=== PATIENT | female | born 1955 | race Caucasian/White ===

== ENCOUNTER 2018-06-02 20:30 | Observation (INO) | payer OTHER, MEDICARE ==
[~2018-06-02] VITALS: Ht 170.2 cm; Wt 106.6 kg
[2018-06-02 21:01] LABS: ABSOLUTE BASOPHIL COUNT 0 /CUMM (0.0-0.2); ABSOLUTE EOSINOPHIL COUNT 0.1 /CUMM (0.0-0.7); ABSOLUTE GRANULOCYTE CT 6.9 /CUMM (1.4-6.5); ABSOLUTE LYMPH COUNT 1.9 /CUMM (1.2-3.4); ABSOLUTE MONOCYTE COUNT 0.2 /CUMM (0.10-0.60); BASOPHIL % 0.3 % (0.0-2.0); EOSINOPHIL % 1.4 % (0-5); GRANULOCYTE % 75.6 % (42.2-75.2); HEMATOCRIT 44.9 % (37-47); MEAN CORPUSCULAR HGB 30.9 PG (27.0-31.0); MEAN CORPUSCULAR HGB CONC 33.8 G/DL (33.0-37.0); MEAN CORPUSCULAR VOLUME 91.3 FL (81.0-99.0); MEAN PLATELET VOLUME 8.5 FL (7.4-10.4); PLATELET COUNT 298 /CUMM (130-400); RBC DISTRIBUTION WIDTH 13.7 % (11.5-14.5); RED BLOOD CELL CT 4.91 /CUMM (4.20-5.40); WHITE BLOOD CELL COUNT 9.1 /CUMM (4.8-10.8)
--- NOTE | 2018-06-02 23:04 | CT SCAN REPORT ---
EXAMINATION: CT ABD PELVIS W IV CONTRAST CLINICAL INFORMATION: Reason for Study:
Presumptive Dx: biliary vs perf viscous vs pancreatitis
Signs Symptoms: epigastric pain
epigastric pain COMPARISON: None TECHNIQUE: Multidetector volumetric imaging was performed from the superior aspect of the liver through the pubic symphysis 95 mL Optiray 320 injected Sagittal and coronal reformatted images were obtained on the technologist's workstation. DLP: 957 mGy-cm FINDINGS: LOWER THORAX: Included lung bases are clear. There is a probably hiatal hernia. HEPATOBILIARY: No focal hepatic lesions. No biliary ductal dilatation. GALLBLADDER: There are gallstones. Gallbladder is distended. SPLEEN: Spleen is normal in size. PANCREAS: Pancreas is atrophic. Peripancreatic fat is clear. STOMACH AND GASTROINTESTINAL TRACT: Stomach is grossly unremarkable. Mildly dilated small bowel loops, partial SBO with a transition zone mid abdomen RIGHT of midline see marked image. There is also mildly dilated colon with multiple air-fluid levels, probably colonic ileus. No CT evidence of appendicitis. ADRENALS: No adrenal nodules. KIDNEYS/URETERS: No hydronephrosis, stones or solid mass lesions. URINARY BLADDER: Partially decompressed. PELVIC VISCERA: Unremarkable PERITONEUM: No free air or fluid. LYMPH NODES: No lymphadenopathy. VASCULAR:Abdominal aorta normal in size, no aneurysm found. BONES, ABDOMINAL WALL AND SOFT TISSUES: Age-appropriate changes of the spine and skeletal system, no destructive osteolytic or osteosclerotic bone lesion found IMPRESSION: 1. Mildly dilated small bowel loops proximally with a transition zone, partial small bowel obstruction noticed in the mid abdomen RIGHT of midline. Could be adhesions versus pathology. This can be further investigated with upper GI small bowel series. 2. Mild colonic ileus, multiple air-fluid levels in the colon. 3. Normal appendix. 4. Cholelithiasis. 5. Small hiatal hernia. (Referring physician will be called, to be alerted of the above findings and recommendations.)
--- NOTE | 2018-06-02 23:59 | ED GENERAL ADULT ---
History of Present Illness General Chief Complaint: Abdominal Pain/Flank Pain Stated Complaint: ABD PAIN Source: patient Exam Limitations: no limitations Vital Signs & Intake/Output Vital Signs & Intake/Output Vital Signs Date Time Temp Pulse Resp B/P B/P Pulse O2 O2 Flow FiO2 Mean Ox Delivery Rate 06/03 0456 99.2 85 20 122/66 94 Room Air 06/03 0035 100.0 84 16 160/80 100 Room Air 06/02 2236 76 18 162/74 98 Room Air 06/02 2040 96.8 102 20 137/83 100 Room Air ED Intake and Output 06/03 0000 06/02 1200 Intake Total 1000 Output Total 300 Balance 700 Intake, IV 1000 Output, 300 Emesis Patient 235 lb Weight Weight Reported by Patient Measurement Method Allergies Coded Allergies: acetaminophen (From DARVOCET-N) (NAUSEA 06/02/18) aspirin (From PERCODAN) (NAUSEA 06/02/18) erythromycin base (RASH 06/02/18) oxycodone (From PERCODAN) (NAUSEA 06/02/18) propoxyphene (From DARVOCET-N) (NAUSEA 06/02/18) Uncoded Allergies: EYE DROPS (EYE RASH 06/02/18) Triage Note: PT TO ED C/O SUDDEN ONSET 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 PMH OF GASTRIC SLEAVE 4-5 YEARS AGO. PAIN NOW GOING TO BACK. DID HAVE VODKA MARTINI EARLIER TODAY. +N/V. +FLATUS. LAST BM WAS "A COUPLE OF DAYS AGO, NOT UNUSUAL FOR ME" DENIES UTI S/S Triage Nurses Notes Reviewed? yes Onset: Abrupt Duration: minute(s): Timing: constant HPI: 62-year-old female with a history of hypertension, hyperlipidemia, depression, diabetes presenting with sudden onset of upper abdominal pain and nausea vomiting the began approximately 30 minutes prior to arrival. Patient reports pain across all her upper quadrants. Feels as though her pain radiates to the back. Pain has no worsening or alleviating factors. Her last bowel movement was 2-3 days ago and normal, states that this is normal for her and she usually only moves her bowels every 2-3 days. Still passing flatus. Prior abdominal surgeries include gastric sleeve done approximately 5 years ago in [place]. No recent sick contacts, travel, or foul foods. (Omar Geraldine GONZALEZ) Past History Travel History Traveled to [place] past 21 day No Medical History Any Pertinent Medical History? see below for history Cardiovascular: hypertension, hyperlipidemia Psychiatric: depression Endocrine: diabetes Surgical History Surgical History: non-contributory Psychosocial History What is your primary language Tajik Tobacco Use: Never used ETOH Use: occasional use Illicit Drug Use: denies illicit drug use Family History Hx Contributory? No (Geraldine Hensley) Review of Systems Review of Systems Constitutional: Reports: no symptoms. EENTM: Reports: no symptoms. Respiratory: Reports: no symptoms. Cardiovascular: Reports: no symptoms. GI: Reports: see HPI. Genitourinary: Reports: no symptoms. Musculoskeletal: Reports: no symptoms. Skin: Reports: no symptoms. Neurological/Psychological: Reports: no symptoms. Hematologic/Endocrine: Reports: no symptoms. Immunologic/Allergic: Reports: no symptoms. All Other Systems: Reviewed and Negative (Geraldine Hensley) Physical Exam Physical Exam General Appearance: well developed/nourished, alert, moderate distress Comments: Gen.: Well-nourished, well-developed, actively vomiting and uncomfortable on arrival Head: Normocephalic, atraumatic. Eyes: Normal inspection bilaterally Ears: Normal inspection bilaterally Nose: Normal inspection Neck: Normal inspection Lungs: clear to auscultation bilaterally, normnal breath sounds Heart: regular rate and rhythm Abdomen: soft, nondistended, normal bowel sounds, tender to palpation in the epigastrium with mild guarding, but no rebound Extremities: Normal inspection Neurologic: alert and oriented x3, steady gait Skin: warm and dry Psychiatric: Normal mood and affect, no apparent delusions or hallucinations, behavior appropriate Core Measures ACS in differential dx? No CVA/TIA Diagnosis: No Sepsis Present: No Sepsis Focused Exam Completed? No (Geraldine Hensley) Progress Differential Diagnoses I considered the following diagnoses in my evaluation of the patient: [ Pancreatitis versus peptic ulcer disease versus perforated viscus versus bowel obstruction versus gastritis] Plan of Care: Orders Procedure Date/time Status Nothing by Mouth 06/03 B Active CBC WITHOUT DIFFERENTIAL 06/03 0700 Active BASIC ELECTROLYTES PLUS BUN&CR 06/03 0700 Active FingerStick- Glucose 06/03 0459 Active FingerStick- Glucose 06/03 0458 Active Vital Signs 06/03 0236 Active Teach/Educate 06/03 0236 Active Pain Treatment and Response 06/03 0236 Active Nutritional Intake, Monitor 06/03 0236 Active Isolation 06/03 0236 Active Intake & Output 06/03 0236 Active Patient Care Conference 06/03 0236 Active Activity/Ambulation 06/03 0236 Active Pathway - chart 06/03 0048 Active Patient Data 06/03 0048 Active Code Status 06/03 0048 Active Saline Lock 06/[address] in observation 06/03 0015 Active Misc Message 06/03 001 Active ED Holding Orders 06/03 0015 Active Vital Signs 06/03 0015 Active Code Status 06/03 0015 Complete VTE Mechanical Prophylaxis 06/03 UNK Active Vital Signs 06/03 UNK Active Intake & Output 06/03 UNK Active Activity/Ambulation 06/03 UNK Active LACTIC ACID 06/02 2134 Complete Add-on Test (ER Only) 06/02 2119 Active TROPONIN LEVEL 06/02 2038 Complete LIPASE 06/02 2038 Complete HEPATIC FUNCTION PANEL 06/02 2038 Complete CBC WITHOUT DIFFERENTIAL 06/02 2038 Complete BASIC METABOLIC PANEL 06/02 2038 Complete AMYLASE 06/02 2038 Complete EKG 06/02 2038 Active Current Medications Sig/Leslie Start time Last Medication Dose Stop Time Status Admin Atorvastatin Calcium 20 MG 1700 06/03 1700 AC (Lipitor) Escitalopram Oxalate 20 MG DAILY 06/03 0900 AC (Lexapro) Timolol Maleate 1 GTT BID 06/03 0900 AC (Timoptic) Acetaminophen 1,000 MG Q6P PRN 06/03 0115 AC (Ofirmev) N/A 1 UNIT (No Carrier) Morphine Sulfate 2 MG Q3P PRN 06/03 0115 AC (MORPHINE SULFATE) Morphine Sulfate 4 MG Q3P PRN 06/03 0115 AC (MORPHINE SULFATE) Oxycodone/ 1 TAB Q4P PRN 06/03 0115 AC Acetaminophen (Percocet) Oxycodone/ 2 TAB Q4P PRN 06/03 0115 AC Acetaminophen (Percocet) Insulin Human Regular 0 Q6 06/03 0058 AC (NovoLIN R) Ondansetron HCl 4 MG Q8P PRN 06/03 0045 AC (Zofran) Sodium Chloride 1,000 ML .Q10H 06/03 0045 AC 06/03 (Normal Saline 0.9%) 0255 Laboratory Tests 06/03/18 0034: Lactic Acid Cancelled 06/03/18 0034: Lactic Acid 1.2 06/02/182054: Anion Gap 11, Estimated GFR > 60, BUN/Creatinine Ratio 16.3, Glucose 225 H, Calcium 10.1, Total Bilirubin 0.9, Direct Bilirubin 0.1, AST 21, ALT 28, Alkaline Phosphatase 86, Troponin I < 0.01, Total Protein 7.3, Albumin 4.3, Amylase 51, Lipase 114, CBC w Diff NO MAN DIFF REQ, RBC 4.91, MCV 91.3, MCH 30.9 , MCHC 33.8, RDW 13.7, MPV 8.5, Gran % 75.6 H, Lymphocytes % 20.6, Monocytes % 2.1, Eosinophils % 1.4, Basophils % 0.3, Absolute Granulocytes 6.9 H, Absolute Lymphocytes 1.9, Absolute Monocytes 0.2, Absolute Eosinophils 0.1, Absolute Basophils 0 Labs unremarkable with the exception of hyperglycemia in the 200s CT scan 1. Mildly dilated small bowel loops proximally with a transition zone, partial small bowel obstruction noticed in the mid abdomen RIGHT of midline. Could be adhesions versus pathology. This can be further investigated with upper GI small bowel series. 2. Mild colonic ileus, multiple air-fluid levels in the colon. 3. Normal appendix. 4. Cholelithiasis. 5. Small hiatal hernia. Patient informed of all above findings. Discussed with Dr. Penn in the surgical PA. Patient will be placed in observation. Initial ED EKG: rhythm (sinus tach to 103) (Geraldine Hensley) Departure Departure Disposition: STILL A PATIENT Condition: Stable Clinical Impression Primary Impression: Partial small bowel obstruction Referrals: Stephanie Hollis MD (PCP/Family) Departure Forms: Customer Survey General Discharge Information Observation Note Spoke With: Fili LOWE,Preston Payne Place Patient In: Non-ED OBS Care Area Rationale for Observation: My rational for observation is as follows [pain control, antiemetics, IV fluids, bowel rest, surgery consultation, serial abdominal exams, possible NG tube for persistent vomiting]. (Geraldine Hensley) PA/DIRECTOR OF ACCOUNTING Co-Sign Statement Statement: ED Attending supervision documentation- [x] I saw and evaluated the patient. I have also reviewed all the pertinent lab results and diagnostic results. I agree with the findings and the plan of care as documented in the PA's/DIRECTOR OF ACCOUNTING's documentation. [] I have reviewed the ED Record and agree with the PA's/DIRECTOR OF ACCOUNTING's documentation. [] Additions or exceptions (if any) to the PAs/DIRECTOR OF ACCOUNTING's note and plan are summarized below: [] (Adrian LOWE,Melecio Rose) Critical Care Note Critical Care Note Critical Care Time: 30-74 min (Omar GONZALEZ,Geraldine)
--- NOTE | 2018-06-03 00:27 | Cons- General Surgery ---
Rachele Watts 06/03/18 0026: General Information and HPI Consulting Request Date of Consult: 06/03/18 Requested By: Geraldine GONZALEZ Reason for Consult: abdominal pain Source of Information: patient, family Exam Limitations: no limitations History of Present Illness: 62-year-old female presented to the ER with sudden acute onset of diffuse abdominal pain and tenderness. Patient describes her pain coming on suddenly at 8:00 tonight it remained constant. Her pain was bandlike across the upper aspect of the abdomen without radiation. She had associated bloating and fullness followed by an episode of emesis. She states she had an uneventful day up to this point and her diet was within her usual. 5 years ago she had a gastric sleeve without incident and has no issues. While in the ER she had 1 loose bowel movement. She has some improvement of her pain with decrease in nausea without any vomiting here in the ER. CAT scan shows a partial small bowel obstruction and her labs are normal except for an elevated glucose. She is on an insulin pump and has been a diabetic for the past 15 years. Past History Medical History Cardiovascular: hypertension, hyperlipidemia Psychiatric: depression Endocrine: diabetes Psychosocial History ETOH Use: occasional use Illicit Drug Use: denies illicit drug use Review of Systems Review of Systems Constitutional: Denies: chills, diaphoresis, weakness. Cardiovascular: Denies: chest pain, palpitations. Respiratory: Denies: cough, short of breath. GI: Reports: abdominal pain, bloating, diarrhea, nausea, vomiting. Genitourinary: Denies: no symptoms. Musculoskeletal: Denies: no symptoms. Exam & Diagnostic Data Vital Signs and I&O Vital Signs Date Time Temp Pulse Resp B/P B/P Pulse O2 O2 Flow FiO2 Mean Ox Delivery Rate 06/02 2236 76 18 162/74 98 Room Air 06/02 2040 96.8 102 20 137/83 100 Room Air Intake & Output 06/03 0806/03 0000 06/02 1600 06/02 0806/02 0000 06/01 1600 Intake Total 1000 Output Total 300 Balance 700 Intake, IV 1000 Output, 300 Emesis Patient 235 lb Weight Weight Reported by Patient Measurement Method Physical Exam: Patient is alert and oriented in mild distress lying on the stretcher her is present during this exam. HEENT is within normal limits Neck is supple nontender with active range of motion Chest is clear to auscultation symmetric without rales rhonchi or wheeze Heart is regular rate rhythm without murmurs rubs gallops Abdomen is obese with mild distention there is mild tenderness to palpation in the epigastric and right upper quadrant area there is no Gonzales sign there is no guarding or rebound Patient reported non-bloody diarrhea and no history of GI bleeds Bilateral lower extremities without edema Perfusion with brisk cap refill Last 24 Hours of Labs: Laboratory Tests 06/02 2055 Chemistry Sodium (137 - 145 mmol/L) 139 Potassium (3.5 - 5.1 mmol/L) 4.4 Chloride (98 - 107 mmol/L) 104 Carbon Dioxide (22 - 30 mmol/L) 24 Anion Gap (5 - 16) 11 BUN (7 - 17 mg/dL) 13 Creatinine (0.5 - 1.0 mg/dL) 0.8 Estimated GFR (>60 ml/min) > 60 BUN/Creatinine Ratio (7 - 25 %) 16.3 Glucose (65 - 99 mg/dL) 225 H Calcium (8.4 - 10.2 mg/dL) 10.1 Total Bilirubin (0.2 - 1.3 mg/dL) 0.9 Direct Bilirubin (< 0.4 mg/dL) 0.1 AST (14 - 36 U/L) 21 ALT (9 - 52 U/L) 28 Alkaline Phosphatase (<127 U/L) 86 Troponin I (< 0.11 ng/ml) < 0.01 Total Protein (6.3 - 8.2 g/dL) 7.3 Albumin (3.5 - 5.0 g/dL) 4.3 Amylase (30 - 110 U/L) 51 Lipase (23 - 300 U/L) 114 Hematology CBC w Diff NO MAN DIFF REQ WBC (4.8 - 10.8 /CUMM) 9.1 RBC (4.20 - 5.40 /CUMM) 4.91 Hgb (12.0 - 16.0 G/DL) 15.2 Hct (37 - 47 %) 44.9 MCV (81.0 - 99.0 FL) 91.3 MCH (27.0 - 31.0 PG) 30.9 MCHC (33.0 - 37.0 G/DL) 33.8 RDW (11.5 - 14.5 %) 13.7 Plt Count (130 - 400 /CUMM) 298 MPV (7.4 - 10.4 FL) 8.5 Gran % (42.2 - 75.2 %) 75.6 H Lymphocytes % (20.5 - 51.1 %) 20.6 Monocytes % (1.7 - 9.3 %) 2.1 Eosinophils % (0 - 5 %) 1.4 Basophils % (0.0 - 2.0 %) 0.3 Absolute Granulocytes (1.4 - 6.5 /CUMM) 6.9 H Absolute Lymphocytes (1.2 - 3.4 /CUMM) 1.9 Absolute Monocytes (0.10 - 0.60 /CUMM) 0.2 Absolute Eosinophils (0.0 - 0.7 /CUMM) 0.1 Absolute Basophils (0.0 - 0.2 /CUMM) 0 Imaging Results: CT shows Mildly dilated small bowel loops proximally with a transition zone, partial small bowel obstruction noticed in the mid abdomen RIGHT of midline. Could be adhesions versus pathology. This can be further investigated with upper GI small bowel series. 2. Mild colonic ileus, multiple air-fluid levels in the colon. 3. Normal appendix. 4. Cholelithiasis. 5. Small hiatal hernia. Assessment/Plan Assessment/Plan 62-year-old female status post gastric sleeve 5 years ago presents to the ER with acute abdominal pain with CAT scan showing partial small bowel obstruction. She vomited once prior to arriving to the emergency room and had a large bowel movement that was loose. She is received 8 mg of morphine IV and her pain is controlled currently. Labs are normal except for her glucose which is elevated and she currently is controlled by an insulin pump. Patient also has a history of hypertension glaucoma hyperlipidemia and depression. Plan will be admit for surgical observation she will remain nothing by mouth with maintenance IV fluids and pain medication to control her abdominal pain and anti-nausea meds. Alps for DVT prophylaxis Continue her home meds Repeat labs in the morning with serial abdominal exams Medical consult for the morning to assess insulin needs Consult Acknowledgment - Thank you for your consult request. Preston Penn MD 06/03/18 1003: General Information and HPI Allergies/Medications Allergies: Coded Allergies: acetaminophen (From DARVOCET-N) (NAUSEA 06/02/18) aspirin (From PERCODAN) (NAUSEA 06/02/18) erythromycin base (RASH 06/02/18) oxycodone (From PERCODAN) (NAUSEA 06/02/18) propoxyphene (From DARVOCET-N) (NAUSEA 06/02/18) Uncoded Allergies: EYE DROPS (EYE RASH 06/02/18) Current Medications: Current Medications Sig/Leslie Start time Last Medication Dose Route Stop Time Status Admin Acetaminophen 1,000 MG Q6P PRN 06/03 0115 AC N/A 1 UNIT IV Atorvastatin Calcium 20 MG 1700 06/03 1700 AC PO Escitalopram Oxalate 20 MG DAILY 06/03 0900 AC PO Insulin Aspart 0 Q6 06/03 1200 UNVr SC Insulin Detemir 18 UNITS DAILY 06/03 0945 AC SC Insulin Human Regular 0 Q6 06/03 0058 DC 06/03 SC 0516 Ketorolac 1 GTT BID 06/03 0900 AC Tromethamine OPH Metoclopramide HCl 10 MG ONCE ONE 06/02 2145 DC 06/02 IV 06/02 2146 214 Metoclopramide HCl 0 .STK-MED ONE 06/02 2141 DC .ROUTE Morphine Sulfate 2 MG Q3P PRN 06/03 0115 AC IV Morphine Sulfate 4 MG Q3P PRN 06/03 0115 AC IV Morphine Sulfate 4 MG ONCE ONE 06/02 2200 DC 06/02 IV 06/02 2201 221 Morphine Sulfate 0 .STK-MED ONE 06/02 2152 DC .ROUTE Morphine Sulfate 0 .STK-MED ONE 06/02 2134 DC .ROUTE Morphine Sulfate 4 MG ONCE ONE 06/02 2130 DC 06/02 IV 06/02 2131 213 Ondansetron HCl 4 MG Q8P PRN 06/03 0045 AC IV Ondansetron HCl 4 MG ONCE ONE 06/02 2145 DC 06/02 IV 06/02 2146 214 Ondansetron HCl 0 .STK-MED ONE 06/02 2141 DC .ROUTE Ondansetron HCl 4 MG ONCE ONE 06/02 2130 DC 06/02 IV 06/02 Ondansetron HCl 0 .STK-MED ONE 06/02 2122 DC .ROUTE Oxycodone/ 1 TAB Q4P PRN 06/03 0115 AC Acetaminophen PO Oxycodone/ 2 TAB Q4P PRN 06/03 0115 AC Acetaminophen PO Patient Medication 1 ED ONE ONE 06/03 0930 DC 06/03 Teaching ED 06/03 0931 0939 Sodium Chloride 1,000 ML .Q10H 06/03 0045 AC 06/03 IV 0255 Sodium Chloride 1,000 ML BOLUS ONE 06/02 2130 DC 06/02 IV 06/02 2229 214 Timolol Maleate 1 GTT BID 06/03 0900 AC 06/03 OPH 0938 Exam & Diagnostic Data Vital Signs and I&O Vital Signs Date Time Temp Pulse Resp B/P B/P Pulse O2 O2 Flow FiO2 Mean Ox Delivery Rate 06/03 0456 99.2 85 20 122/66 94 Room Air 06/03 0035 100.0 84 16 160/80 100 Room Air 06/02 2236 76 18 162/74 98 Room Air 06/02 2040 96.8 102 20 137/83 100 Room Air Intake & Output 06/03 1600 06/03 0800 06/03 0000 06/02 1600 06/02 0800 06/02 0000 Intake Total 300 1000 Output Total 300 Balance 300 700 Intake, IV 300 1000 Intake, Oral 0 Output, 300 Emesis Patient 235 lb 235 lb Weight Weight Reported by Patient Measurement Method Last 24 Hours of Labs: Laboratory Tests 06/03 06/03 06/03 0848 0034 0034 Chemistry Sodium Pending Potassium Pending Chloride Pending Carbon Dioxide Pending Anion Gap Pending BUN Pending Creatinine Pending BUN/Creatinine Ratio Pending Lactic Acid (0.7 - 2.1 mmol/L) Cancelled 1.2 Hematology CBC w Diff Pending WBC Pending RBC Pending Hgb Pending Hct Pending MCV Pending MCH Pending MCHC Pending RDW Pending Plt Count Pending MPV Pending 06/02 2055 Chemistry Sodium (137 - 145 mmol/L) 139 Potassium (3.5 - 5.1 mmol/L) 4.4 Chloride (98 - 107 mmol/L) 104 Carbon Dioxide (22 - 30 mmol/L) 24 Anion Gap (5 - 16) 11 BUN (7 - 17 mg/dL) 13 Creatinine (0.5 - 1.0 mg/dL) 0.8 Estimated GFR (>60 ml/min) > 60 BUN/Creatinine Ratio (7 - 25 %) 16.3 Glucose (65 - 99 mg/dL) 225 H Calcium (8.4 - 10.2 mg/dL) 10.1 Total Bilirubin (0.2 - 1.3 mg/dL) 0.9 Direct Bilirubin (< 0.4 mg/dL) 0.1 AST (14 - 36 U/L) 21 ALT (9 - 52 U/L) 28 Alkaline Phosphatase (<127 U/L) 86 Troponin I (< 0.11 ng/ml) < 0.01 Total Protein (6.3 - 8.2 g/dL) 7.3 Albumin (3.5 - 5.0 g/dL) 4.3 Amylase (30 - 110 U/L) 51 Lipase (23 - 300 U/L) 114 Hematology CBC w Diff NO MAN DIFF REQ WBC (4.8 - 10.8 /CUMM) 9.1 RBC (4.20 - 5.40 /CUMM) 4.91 Hgb (12.0 - 16.0 G/DL) 15.2 Hct (37 - 47 %) 44.9 MCV (81.0 - 99.0 FL) 91.3 MCH (27.0 - 31.0 PG) 30.9 MCHC (33.0 - 37.0 G/DL) 33.8 RDW (11.5 - 14.5 %) 13.7 Plt Count (130 - 400 /CUMM) 298 MPV (7.4 - 10.4 FL) 8.5 Gran % (42.2 - 75.2 %) 75.6 H Lymphocytes % (20.5 - 51.1 %) 20.6 Monocytes % (1.7 - 9.3 %) 2.1 Eosinophils % (0 - 5 %) 1.4 Basophils % (0.0 - 2.0 %) 0.3 Absolute Granulocytes (1.4 - 6.5 /CUMM) 6.9 H Absolute Lymphocytes (1.2 - 3.4 /CUMM) 1.9 Absolute Monocytes (0.10 - 0.60 /CUMM) 0.2 Absolute Eosinophils (0.0 - 0.7 /CUMM) 0.1 Absolute Basophils (0.0 - 0.2 /CUMM) 0 Assessment/Plan Problem List: 1. Partial small bowel obstruction 2. Gastroenteritis Copies To: Bunny LOWE,Stephanie Consult Acknowledgment - Thank you for your consult request. Attending MD Review Statement Attending Statement Attending MD Statement: examined this patient, discuss w/resident/PA/LEAD MANUFACTURING ENGINEER, reviewed images Attending Assessment/Plan: This is a 62-year-old woman with insulin dependent diabetes mellitus on insulin pump, hypertension, hyperlipidemia, who presents with severe epigastric abdominal pain associated with nausea, vomiting and watery diarrhea. Past surgical history significant for laparoscopic gastric sleeve and tubal ligation. Since being treated in the emergency room, patient has had resolution of her abdominal pain. Currently she is pain-free. She had watery diarrhea in the emergency room and continues to pass flatus since then. Physical examination shows woman in no distress, HEENT is normal, heart is regular no murmurs rubs or gallops, lungs are clear bilaterally without wheezes rales or rhonchi, abdomen is soft mild tenderness epigastric region. No tympany no mass no hernia. Healed laparoscopy scars. CBC and metabolic panel are within normal limits. CT scan of abdomen pelvis with IV contrast was personally reviewed. Images show mildly dilated gastric sleeve with proximal small bowel dilatation. There is fluid filling majority of proximal bowel loops. There is no transition point. There is gas and stool throughout the colon. Given rapid resolution of patient's symptoms preservation of bowel function, my impression is that her diagnosis is more in keeping with severe gastroenteritis, likely viral. Since her pain is resolved and there is no evidence of distention on examination, recommend trial of clear liquid diet.
[2018-06-03 04:56] VITALS: BP 122/66
--- NOTE | 2018-06-03 07:33 | PN- General Surgery ---
See Addendum Subjective Subjective: pt in bed, says her belly feels tender but pain has significantly decreased since when she first came to hospital. Has not had any pain medication since she was in the ER. Denies nausea. Last void and BM was in the ER around 10pm. Denies fever, CP, SOB Objective Vital Signs and I&Os Vital Signs Date Time Temp Pulse Resp B/P B/P Pulse O2 O2 Flow FiO2 Mean Ox Delivery Rate 06/03 0456 99.2 85 20 122/66 94 Room Air 06/03 0035 100.0 84 16 160/80 100 Room Air 06/02 2236 76 18 162/74 98 Room Air 06/02 2040 96.8 102 20 137/83 100 Room Air Intake & Output 06/03 0806/03 0000 06/02 1600 06/02 0806/02 0000 06/01 1600 Intake Total 300 1000 Output Total 300 Balance 300 700 Intake, IV 300 1000 Intake, Oral 0 Output, 300 Emesis Patient 235 lb 235 lb Weight Weight Reported by Patient Measurement Method Physical Exam: gen- NAD resp- clear cardiac- RRR abd- ND, +BS, soft, mildly tender in upper abdomen, no gaurding or rebound ext- calves are soft and NT Current Medications: Current Medications Sig/Leslie Start time Last Medication Dose Route Stop Time Status Admin Acetaminophen 1,000 MG Q6P PRN 06/03 011 AC N/A 1 UNIT IV Atorvastatin Calcium 20 MG 1700 06/03 1700 AC PO Escitalopram Oxalate 20 MG DAILY 06/03 0900 AC PO Insulin Human Regular 0 Q6 06/03 0058 AC 06/03 SC 0516 Ketorolac 1 GTT BID 06/03 09 AC Tromethamine OPH Metoclopramide HCl 10 MG ONCE ONE 06/02 2145 DC 06/02 IV 06/02 Metoclopramide HCl 0 .STK-MED ONE 06/02 2141 DC .ROUTE Morphine Sulfate 2 MG Q3P PRN 06/03 115 AC IV Morphine Sulfate 4 MG Q3P PRN 06/03 115 AC IV Morphine Sulfate 4 MG ONCE ONE 06/02 2200 DC 06/02 IV 06/02 Morphine Sulfate 0 .STK-MED ONE 06/02 2152 DC .ROUTE Morphine Sulfate 0 .STK-MED ONE 06/02 2134 DC .ROUTE Morphine Sulfate 4 MG ONCE ONE 06/02 2130 DC 06/02 IV 06/02 Ondansetron HCl 4 MG Q8P PRN 06/035 AC IV Ondansetron HCl 4 MG ONCE ONE 06/02 2145 DC 06/02 IV 06/02 Ondansetron HCl 0 .STK-MED ONE 06/02 2141 DC .ROUTE Ondansetron HCl 4 MG ONCE ONE 06/02 2130 DC 06/02 IV 06/02 Ondansetron HCl 0 .STK-MED ONE 06/02 2122 DC .ROUTE Oxycodone/ 1 TAB Q4P PRN 06/03 011 AC Acetaminophen PO Oxycodone/ 2 TAB Q4P PRN 06/03 011 AC Acetaminophen PO Sodium Chloride 1,000 ML .Q10H 06/03 0045 AC 06/03 IV 0255 Sodium Chloride 1,000 ML BOLUS ONE 06/02 2130 DC 06/02 IV 06/02 Timolol Maleate 1 GTT BID 06/03 0900 AC OPH Results Last 48 Hours of Labs: Laboratory Tests 06/03 06/03 06/02 0034 0034 2055 Chemistry Sodium (137 - 145 mmol/L) 139 Potassium (3.5 - 5.1 mmol/L) 4.4 Chloride (98 - 107 mmol/L) 104 Carbon Dioxide (22 - 30 mmol/L) 24 Anion Gap (5 - 16) 11 BUN (7 - 17 mg/dL) 13 Creatinine (0.5 - 1.0 mg/dL) 0.8 Estimated GFR (>60 ml/min) > 60 BUN/Creatinine Ratio (7 - 25 %) 16.3 Glucose (65 - 99 mg/dL) 225 H Lactic Acid (0.7 - 2.1 mmol/L) Cancelled 1.2 Calcium (8.4 - 10.2 mg/dL) 10.1 Total Bilirubin (0.2 - 1.3 mg/dL) 0.9 Direct Bilirubin (< 0.4 mg/dL) 0.1 AST (14 - 36 U/L) 21 ALT (9 - 52 U/L) 28 Alkaline Phosphatase (<127 U/L) 86 Troponin I (< 0.11 ng/ml) < 0.01 Total Protein (6.3 - 8.2 g/dL) 7.3 Albumin (3.5 - 5.0 g/dL) 4.3 Amylase (30 - 110 U/L) 51 Lipase (23 - 300 U/L) 114 Hematology CBC w Diff NO MAN DIFF REQ WBC (4.8 - 10.8 /CUMM) 9.1 RBC (4.20 - 5.40 /CUMM) 4.91 Hgb (12.0 - 16.0 G/DL) 15.2 Hct (37 - 47 %) 44.9 MCV (81.0 - 99.0 FL) 91.3 MCH (27.0 - 31.0 PG) 30.9 MCHC (33.0 - 37.0 G/DL) 33.8 RDW (11.5 - 14.5 %) 13.7 Plt Count (130 - 400 /CUMM) 298 MPV (7.4 - 10.4 FL) 8.5 Gran % (42.2 - 75.2 %) 75.6 H Lymphocytes % (20.5 - 51.1 %) 20.6 Monocytes % (1.7 - 9.3 %) 2.1 Eosinophils % (0 - 5 %) 1.4 Basophils % (0.0 - 2.0 %) 0.3 Absolute Granulocytes (1.4 - 6.5 /CUMM) 6.9 H Absolute Lymphocytes (1.2 - 3.4 /CUMM) 1.9 Absolute Monocytes (0.10 - 0.60 /CUMM) 0.2 Absolute Eosinophils (0.0 - 0.7 /CUMM) 0.1 Absolute Basophils (0.0 - 0.2 /CUMM) 0 Assessment/Plan Assessment/Plan 62-year-old female status post gastric sleeve 5 years ago with IDDM here in observation with partial small bowel obstruction. Continue observation for serial abdominal exams nothing by mouth with maintenance IV fluids Encourage ambulation pain medication PRN Alps for DVT prophylaxis Medicine Consult ISS for NPO pt FU AM labs Core Measures Venous Thromboembolism VTE Risk Factors Age>40 No Mechanical VTE Prophylaxis d/t N/A MechProphylax Ordered No VTE Pharm Prophylaxis d/t LowRisk-No Interven Req'd
--- NOTE | 2018-06-03 09:27 | Cons- Endocrinology ---
General Information and HPI Consulting Request Date of Consult: 06/03/18 Requested By: Dr. Jorge Penn History of Present Illness: This is a 62 F Y lady who recently had bariatric surgery presented with abdominal pain, found to have partial bowel obstruction. Patient has type 1 diabets and is on insulin pump following Dr. Delarosa. She is currently NPO. Her pain has resolved, although she is still nauseated occasionally. She said that her glucose level were between 100-200 most of the time. Basal: 12AM: 0.8 3AM: 0.9 8AM: 1.4 3PM: 1.4 5PM: 1.4 8PM: 1.4 10PM: 1.5 Carb ratio: 12AM 12 4PM 11 Sensitivity 45 Target 100-150 insulin active time: 4 hours Allergies/Medications Allergies: Coded Allergies: acetaminophen (From DARVOCET-N) (NAUSEA 06/02/18) aspirin (From PERCODAN) (NAUSEA 06/02/18) erythromycin base (RASH 06/02/18) oxycodone (From PERCODAN) (NAUSEA 06/02/18) propoxyphene (From DARVOCET-N) (NAUSEA 06/02/18) Uncoded Allergies: EYE DROPS (EYE RASH 06/02/18) Review of Systems Comments GENERAL/CONSTITUTIONAL: No fever, weakness. HEAD, EYES, EARS, NOSE AND THROAT: No loss of vision or loss of hearing CARDIOVASCULAR: No chest pain or shortness of breath RESPIRATORY: No cough or wheezing. GASTROINTESTINAL: No abdominal pain. MUSCULOSKELETAL: No muscle weakness or tenderness. SKIN: No hives NEUROLOGIC: No fainting or loss of consciousness PSYCHIATRIC: Alert and oriented. ENDOCRINE: see HPI. Past History Travel History Traveled to [place] past 21 day No Medical History Blood Transfusion Hx: No Neurological: NONE EENT: NONE Cardiovascular: hypertension, hyperlipidemia Respiratory: NONE Gastrointestinal: NONE Hepatic: NONE Renal: NONE Musculoskeletal: NONE Psychiatric: depression Endocrine: diabetes Blood Disorders: NONE Cancer(s): NONE ACUTE CARE CERTIFIED NURSING ASSISTANT/Reproductive: NONE Surgical History Surgical History: non-contributory Psychosocial History Smoking Status: Never Smoked ETOH Use: occasional use Illicit Drug Use: denies illicit drug use Exam & Diagnostic Data Last 24 Hrs of Vital Signs/I&O Vital Signs Date Time Temp Pulse Resp B/P B/P Pulse O2 O2 Flow FiO2 Mean Ox Delivery Rate 06/03 0456 99.2 85 20 122/66 94 Room Air 06/03 0035 100.0 84 16 160/80 100 Room Air 06/02 2236 76 18 162/74 98 Room Air 06/02 2040 96.8 102 20 137/83 100 Room Air Intake & Output 06/03 1600 06/03 0800 06/03 0000 Intake Total 300 1000 Output Total 300 Balance 300 700 Intake, IV 300 1000 Intake, Oral 0 Output, 300 Emesis Patient 235 lb 235 lb Weight Weight Reported by Patient Measurement Method GENERAL APPEARANCE: Well developed, in no acute distress. SKIN: no hives HEENT: conjunctivae were pink and moist. Extraocular movements were intact. External inspection of the ears and nose showed no masses. NECK: Supple and symmetric. CHEST: normal contour, normal breath effort. LUNGS: Auscultation of the lungs revealed normal breath sounds CARDIOVASCULAR: regular rate and rhythm. ABDOMEN: obese abdomen MUSCULOSKELETAL: Gait was not assessed NEUROLOGIC: Alert and oriented x 3. Assessment/Plan Assessment/Plan This is a 62-year-old lady with type 1 diabetes on insulin pump who presented with abdominal pain, found to have small bowel obstruction. Her total daily basal insulin dose is 29.5 units. Since she is NPO, her insulin requirement will be lower. Please start with 18 units of Levemir daily. Meanwhile, start to check blood gucose every 6 hours and use Novolog according to the scale as below: 151-200 1 units 201-250 2 units 251-300 3 units 301-350 4 units 351-400 5 units >400 6 units and inform provide Will follow Consult Acknowledgment - Thank you for your consult request.
[2018-06-03 10:11] LABS: ABSOLUTE BASOPHIL COUNT 0 /CUMM (0.0-0.2); ABSOLUTE EOSINOPHIL COUNT 0.1 /CUMM (0.0-0.7); ABSOLUTE GRANULOCYTE CT 8.3 /CUMM (1.4-6.5); ABSOLUTE LYMPH COUNT 0.6 /CUMM (1.2-3.4); ABSOLUTE MONOCYTE COUNT 0.6 /CUMM (0.10-0.60); BASOPHIL % 0 % (0.0-2.0); EOSINOPHIL % 1.2 % (0-5); GRANULOCYTE % 86.3 % (42.2-75.2); MEAN CORPUSCULAR HGB 31.3 PG (27.0-31.0); MEAN CORPUSCULAR HGB CONC 34.2 G/DL (33.0-37.0); MEAN CORPUSCULAR VOLUME 91.4 FL (81.0-99.0); MEAN PLATELET VOLUME 9.4 FL (7.4-10.4); PLATELET COUNT 228 /CUMM (130-400); RBC DISTRIBUTION WIDTH 13.8 % (11.5-14.5); RED BLOOD CELL CT 4.33 /CUMM (4.20-5.40); WHITE BLOOD CELL COUNT 9.6 /CUMM (4.8-10.8)
[2018-06-03 10:46] LABS: HEMATOCRIT 39.6 % (37-47)
[2018-06-03 14:05] VITALS: BP 122/64
--- NOTE | 2018-06-03 15:53 | RADIOLOGY REPORT ---
EXAMINATION: XR ABDOMEN MULTIPLE VIEWS CLINICAL INDICATION: Partial small bowel obstruction resolution. COMPARISON: CT abdomen and pelvis 06/02/2018 TECHNIQUE: 2 views of the abdomen. FINDINGS: There is no evidence of free air or obstruction. No abnormal calcifications are seen IMPRESSION: Unremarkable examination.
[2018-06-03 22:21] VITALS: BP 140/64
[2018-06-04 06:57] VITALS: BP 144/80
--- NOTE | 2018-06-04 12:01 | PN- Diabetes ---
Assessment/Plan Diabetes Assessment: This is a 62-year-old lady with type 1 diabetes on insulin pump who presented with abdominal pain, found to have small bowel obstruction. Plan: Once the patient starts to tolerate solid food: 1. please give carbohydrate level 1 diet. 2. Continue Levemir 18 units daily 3. Change Novolog according to the scale below. 4. Check BG ACHS Will follow Inpatient Diabetes Orders Before Each Meal: < 80 mg/dl: 0 80-100 mg/dl: 3 101-120 mg/dl: 3 121-150 mg/dl: 3 151-200 mg/dl: 4 201-250 mg/dl: 5 251-300 mg/dl: 6 301-350 mg/dl: 7 351-400 mg/dl: 8 > 400 mg/dl: 9 Bedtime: < 80 mg/dl: 0 80-100 mg/dl: 0 101-120 mg/dl: 0 121-150 mg/dl: 0 151-200 mg/dl: 1 201-250 mg/dl: 2 251-300 mg/dl: 3 301-350 mg/dl: 4 351-400 mg/dl: 5 > 400 mg/dl: 6 Subjective Subjective: Her blood glucose started to rise this morning. Fiber diet was ordered. Objective Last 24 Hrs of Vital Signs/I&O Vital Signs Date Time Temp Pulse Resp B/P B/P Pulse O2 O2 Flow FiO2 Mean Ox Delivery Rate 06/04 0657 98.3 68 20 144/80 93 Room Air 06/03 2221 99.7 74 20 140/64 96 Room Air 06/03 1405 98.9 69 20 122/64 95 Room Air Intake & Output 06/04 1600 06/04 0800 06/04 0000 Intake Total 240 600 Output Total Balance 240 600 Intake, IV 600 Intake, Oral 240
--- NOTE | 2018-06-04 12:06 | PN- General Surgery ---
Surgical Brief Attending Note Brief Attending Note: Patient doing well. tolerating clears. symptoms more in keeping with gastoenteritis than SBO. Advance diet and d/c home if tolerates.
--- NOTE | 2018-06-04 12:06 | Surg Short-stay <48hrs Dis Sum ---
Visit Information Visit Dates Admission Date: 06/03/18 Discharge Date: 06/04/18 Surgical Short Stay DC Summary Admission Diagnosis: SBO Final Diagnosis: Gastroenteritis Procedure(s): None Summary/Significant Findings: None. Patients symptoms resolved within 12 hours of admission. Diet was advanced and she was discharged home. Condition at Discharge: Good Discharge Disposition: home or self care Discharge instructions provided to patient/family: Yes Post discharge follow-up plan: PCP as needed Copies to: Stephanie Hollis MD
[2018-06-04 13:53] VITALS: BP 122/90
--- NOTE | 2018-06-04 15:47 | Patient Discharge Instructions ---
Discharge Instructions General Discharge Information You were seen/treated for: partial small bowel obstruction You had these procedures: none Watch for these problems: increased abdominal pain, intractable vomiting Special Instructions: per Dr Paulson: turn on insulin pump 06/05 @ 530am Diet Recommended Diet: Low Residue Activity Full Activity/No Limits: Yes Activity Limited to: Weight bear as tolerated Acute Coronary Syndrome Inclusion Criteria At DC or during hospital stay patient has or had the following: ACS DIAGNOSIS No Discharge Core Measures Meds if any: Prescribed or Continued at Discharge Meds if any: NOT Prescribed or Continued at Discharge Congestive Heart Failure Inclusion Criteria At DC or during hospital stay patient has or had the following: CHF DIAGNOSIS No Discharge Core Measures Meds if any: Prescribed or Continued at Discharge Meds if any: NOT Prescribed or Continued at Discharge Cerebrovascular accident Inclusion Criteria At DC or during hospital stay patient has or had the following: CVA/TIA Diagnosis No Discharge Core Measures Meds if any: Prescribed or Continued at Discharge Meds if any: NOT Prescribed or Continued at Discharge Venous thromboembolism Inclusion Criteria VTE Diagnosis No VTE Type NONE VTE Confirmed by (Test) NONE Discharge Core Measures - Per Current guidelines, there needs to be overlap - treatment for the first 5 days of Warfarin therapy. - If discharged on Warfarin prior to 5 days of - overlap therapy, the patient will need to be - assessed for post discharge needs including - *Post discharge parental anticoagulation - *Warfarin and/or parental anticoagulation education - *Follow up date to check INR post discharge At least 5 days overlap therapy as Inpatient No Meds if any: Prescribed or Continued at Discharge Note: Overlap Therapy is Warfarin and Anticoagulant Meds if any: NOT Prescribed or Continued at Discharge
[2018-06-04] MEDS ORDERED: ATORVASTATIN CA20 M1 PO (16:16)
[2018-06-04] MEDS ORDERED: LEXAPRO10 M1 PO (16:16)
[2018-06-04] MEDS ORDERED: TIMOLOL MALEATE5 M4 OPH (16:16)
[2018-06-04] MEDS ORDERED: KETOROLAC TROMET5 M1 OPH (16:16)
== END 2018-06-04 17:22 ==
LOC: ERH 20:30 → ERHI 06-03 00:15 → 2NA 06-03 00:15 → EDBEDREQ 06-03 01:20 → ENRESERV 06-03 01:21 → 2NA 06-03 02:19
PROVIDERS: Pediatrics; Physician Assistant
DX: K52.9 Noninfective gastroenteritis and colitis, unspecified (principal); I10 Essential (primary) hypertension; E78.5 Hyperlipidemia, unspecified; F32.9 Major depressive disorder, single episode, unspecified; E10.9 Type 1 diabetes mellitus without complications; Z96.41 Presence of insulin pump (external) (internal); H40.9 Unspecified glaucoma
CPT/HCPCS: 36592; 74021; 74177; 82436; 93005; 93010; 96374; 96375; 96376; G0378; J0131; J1815; J2405; J2765